=== PATIENT | female | born 1960 | race Caucasian/White ===

== ENCOUNTER 2017-03-28 10:37 | Inpatient (IN) ==
[2017-03-28] MEDS ORDERED: Albuterol 2.5 MG/3 ML NEBULIZER IH ONE (10:55)
[2017-03-28] MEDS ORDERED: CeFAZolin Syr 2,000MG/20 ML 2,000 MG/20 ML SYRINGE IVPB ONE (10:55)
[2017-03-28] MEDS ORDERED: Ringers Solution, Lactated 1,000 ML IVC SCH (11:00)
--- NOTE | 2017-03-28 11:01 | Anesthesia Evaluation PreOp ---
Date of Encounter: 03/28/17 Time of Encounter: 10:59 - Past History Planned Operation: right fem-pop Cardiac History: HTN, Hyperlipidemia, Other (PAD) Pulmonary History: Smoker, Pack/yr (25) SECURITY MANAGEMENT SPECIALIST History: TIA (no residual), Other (DM neuropathy, benign essential tremors) Other Medical History: Diabetes Type II Anesthesia History: No Prior Anesthetic Complications, Past Anesthesia (MAC for scoopes and vascualr procedures) : No Alcohol Use: none Drug use: none Medications and Allergies Albuterol Sulfate [Ventolin Hfa] 2 puff IH Q4H PRN 03/10/17 [History] Alogliptin Benzoate [Alogliptin] 25 mg PO DAILY 03/10/17 [History] Atorvastatin [Lipitor] 40 mg PO HS 03/10/17 [History] Budesonide/Formoterol 160/4.5 [Symbicort 160/4.5] 2 puff IH BIDR 03/10/17 [ History] Cetirizine HCl [Zyrtec] 10 mg PO HS PRN 03/10/17 [History] Cilostazol [Pletal] 100 mg PO BID 03/10/17 [History] Clopidogrel Bisulfate [Plavix] 75 mg PO DAILY #30 tablet 03/10/17 [Rx] Gabapentin [Neurontin] 800 mg PO TID 03/10/17 [History] Linagliptin [Tradjenta] 5 mg PO DAILY 03/10/17 [History] Losartan Potassium [Cozaar] 50 mg PO DAILY 03/10/17 [History] Oxybutynin [Ditropan] 5 mg PO BID 03/10/17 [History] Pantoprazole Sodium [Protonix] 40 mg PO DAILY 03/10/17 [History] Primidone [Mysoline] 50 mg PO BID 03/10/17 [History] Sertraline [Zoloft] 25 mg PO DAILY 03/10/17 [History] Tramadol HCl [Ultram] 50 mg PO QID PRN 03/10/17 [History] traZODone [TraZODone] 50 mg PO HS 03/10/17 [History] Aspirin [Lo-Dose Aspirin EC] 81 mg PO DAILY 03/28/17 [History] Metformin HCl [Glucophage] 1,000 mg PO BID 03/28/17 [History] 3 Allergy/AdvReac Type Severity Reaction Status Date / Time No Known Allergies Allergy Verified 03/28/17 10:49 - Meds/Allergy Pre-op Review Medications Reviewed: Yes Allergies Reviewed: Yes Beta Blockers on Current Med List: No Anesthesia Results - Labs Laboratory Tests 02/22/17 02/22/17 02/22/17 13:49 13:49 13:49 Hgb 13.1 Hct 37.4 Plt Count 339 PT 10.6 INR 1.0 APTT 29.3 BUN 5 L Creatinine 0.63 - Imaging EKG: report reviewed (SINUS TACHYCARDIA LOW QRS VOLTAGE IN PRECORDIAL LEADS) Anesthesia Exam Weight: 96kg NPO (# of Hours): 8 - HEENT Pupil (Motor): EOMI Mallampati: II Teeth: Edentulous Oral Opening: Greater than 3 - SECURITY MANAGEMENT SPECIALIST LOC: Oriented (Patient has no gross sensory loss on LE) SECURITY MANAGEMENT SPECIALIST Motor: Normal RUE, Normal LUE, Normal RLE, Normal LLE, Normal Face SECURITY MANAGEMENT SPECIALIST Sensory: Normal: RUE, LUE, RLE, LLE, Face - Cardiac Rhythm: Regular Murmur: None - Pulmonary Breath Sounds: bilateral Clear Respiratory Effort: Symmetrical Anesthesia Assess/Plan ASA Score: 3 Modified [place] Scale for Level of Consciousness: Cooperative, oriented, and tranquil Anesthetic Plan: General Monitoring Plan: Standard Monitors Recovery Plan: PACU (Discussed GA with gian, agrees to proceed. Understands may need a-line)
[2017-03-28] MEDS ORDERED: Ondansetron 4 MG/2 ML VIAL ONE (11:04)
[2017-03-28] MEDS ORDERED: *HR* Succinylcholine 200 MG/10 ML VIAL IVP ONE (11:04)
[2017-03-28] MEDS ORDERED: Lidocaine -MPF 2% 2 ML VIAL ONE (11:04)
[2017-03-28] MEDS ORDERED: Dexamethasone 4 MG/ML VIAL ONE (11:04)
[2017-03-28] MEDS ORDERED: *HR* Phenylephrine 10 MG/ML VIAL ONE (11:04)
[2017-03-28] MEDS ORDERED: *HR* Remifentanil 2 MG VIAL IVP ONE (11:05)
[2017-03-28] MEDS ORDERED: *HR* Propofol 200 MG/20 ML VIAL IVP ONE (11:05)
[2017-03-28] MEDS ORDERED: *HR* FentaNYL (PF) 100 MCG/2 ML VIAL ONE (11:05)
[2017-03-28] MEDS ORDERED: *HR* Midazolam HCl 2 MG/2 ML VIAL ONE (11:05)
[2017-03-28] MEDS ORDERED: Plasma-Lyte A (PH 7.4) 1,000 ML IVC SCH (11:30)
[2017-03-28] MEDS ORDERED: Heparin 1,000 UNITS/500 mL NS 0 ML ONE (15:31)
--- NOTE | 2017-03-28 15:44 | History & Physical Report ---
Date of Encounter: 03/28/17 Time of Encounter: 15:43 24 Hour HP Update - Instructions Instructions: If the History and Physical is less than 30 days old and was completed prior to A.M. admission and or procedure and has NOT been updated on calendar day of procedure please complete this update prior to performing procedure. - Update Patient reports changes in Medical Condition: No Changes in examination, assessment, or condition: No Changes in Medication: No Preop tests/diagnostics Reviewed: Yes Surgery Remains Indicated: Yes Consent for Planned Operative Procedure(s) Verified: Yes - Pre-Operative Checklist Preoperative Checklist Indicated: Yes Prophylactic Antibiotic Ordered: Yes Home Medications Include Beta Jeanmarie: No Beta Jeanmarie Taken Today (Day of Surgery): No Beta Jeanmarie Taken Yesterday (Day Prior to Surgery): No Is VTE Prophylaxis Indicated?: Yes
[2017-03-28] MEDS ORDERED: Heparin 1,000 UNITS/500 mL NS 500 ML ONE ×2 (16:02→16:03)
[2017-03-28] MEDS ORDERED: *HR* HYDROmorphone 2 MG/ML SYRINGE ONE (16:46)
[2017-03-28] MEDS ORDERED: *HR* Heparin 5,000 UNIT/ML VIAL ONE (16:49)
[2017-03-28] MEDS ORDERED: EPHEDrine 50 MG/ML VIAL ONE (16:58)
[2017-03-28] MEDS ORDERED: Ondansetron 4 MG/2 ML VIAL IVP ONE (17:20)
[2017-03-28] MEDS ORDERED: *HR* HYDROmorphone (PF) 1 MG/ML SYRINGE IVP PRN (17:20)
[2017-03-28] MEDS ORDERED: *HR* Promethazine 25 MG/ML VIAL IVP PRN (17:20)
--- NOTE | 2017-03-28 19:46 | Operative Note ---
Date of procedure: 03/28/17 Pre-op diagnosis: right cludication/PAD Post-op diagnosis: same Procedure: right femoral--AK popliteal bypass graft Complications: none Anesthesia: GETA Surgeon: Haile Guzman Estimated blood loss (cc): 200 Specimen: none Condition: stable Disposition: PACU Procedure in Detail: History Barbara Ramos is a 56-year-old white female with a long history of lower extremity peripheral vascular occlusive disease. She initially responded to pharmacologic agents but has had deterioration of years status. She then went on to have an angiogram in February. This demonstrated significant disease with chronic total occlusion of the superficial femoral arteries bilaterally. She had a successful endovascular treatment of the left lower extremity but the right lower extremity system could not be treated endovascularly and required direct reconstruction. She now comes for bypass grafting of the right lower extremity today. Procedure After informed consent was obtained the patient was taken to the operating room. General endotracheal anesthesia was established under arterial line pressure monitoring. The right lower extremity was sterilely prepped and draped. A timeout protocol was observed. An incision was made at the right groin in an oblique orientation to expose the common femoral artery. This vessel was relatively small in diameter. There was a posterior plaque but the pulse anteriorly was strong and the wall was soft. Dissection revealed that this was a very deep artery and because of the depth of the vessel it was thought inappropriate to proceed with vein grafting and so therefore did decision was made to create this bypass with synthetic. A second incision was then made in the [id number] popliteal area. Dissection was carried down to reveal the above-knee popliteal artery. This vessel was relatively normal in size. It was firm but not hard. An incision was made on the anterior surface of the popliteal artery. Heparin had been administered prior to that and a tunnel was created in a subsartorial space. A 6 mm PTFE Distaflo graft was selected. This was anastomosed in end to side fashion distally first. After this was completed the graft was clamped and then attention was directed proximally. An endograft to side of artery anastomosis was made proximally using 6-0 Prolene suture. Leaving a small space open on the suture line the graft was flushed. The final few sutures were placed. The graft wasn't unclamped and pulsatile flow was restored into the popliteal and tibial system. Excellent Doppler signals were identified at the ankle. The wounds were then irrigated and hemostasis achieved. The incisions were closed using absorbable suture. There were no intraoperative complications. The patient tolerated the procedure well. The patient was extubated in the operating room and taken to the recovery room in stable condition.
[2017-03-28] MEDS ORDERED: Esmolol 100 MG/10 ML VIAL IVP ONE (19:47)
--- NOTE | 2017-03-28 20:23 | Anesthesia Evaluation Post Op ---
Date of Encounter: 03/28/17 Time of Encounter: 20:22 - Vital Signs Vital Signs: Vital Signs/O2 Sat, Most Current Temp Pulse Resp BP Pulse Ox 98.9 F 102 15 152/77 95 03/28/17 19:55 03/28/17 20:15 03/28/17 20:15 03/28/17 20:15 03/28/17 20:15 - Lungs Lungs: Clear Ascult./Percussion - Airway Airway: Non-obstructed - Cardiovascular Regular Rate - Mental Status Mental Status: Alert & Oriented, Answers Appropriately - Pain Pain Scale: 0 Pain Scale used: Numeric (1 - 10) - Nausea Vomiting Nausea Vomiting: Not Present - Hydration Hydration: Ice chips, Joseph catheter - Discharge PostOp Status: Transfer Patient to floor
[2017-03-28] MEDS ORDERED: Loratadine 10 MG TABLET PO PRN (20:41)
[2017-03-28] MEDS ORDERED: Naloxone 0.4 MG/ML INJ IVP PRN (20:41)
[2017-03-28] MEDS ORDERED: Ondansetron 4 MG/2 ML VIAL IVP PRN (20:41)
[2017-03-28] MEDS ORDERED: traMADol 50 MG TABLET PO PRN (20:41)
[2017-03-28] MEDS ORDERED: traZODone 50 MG TABLET PO SCH (21:00)
[2017-03-28] MEDS: Gabapentin 400 MG CAPSULE PO SCH (21:37)
[2017-03-28] MEDS: Primidone 50 MG TABLET PO SCH (21:37)
[2017-03-28] MEDS: *HR* Metformin 500 MG TABLET PO SCH (21:40)
[2017-03-28] MEDS: Budesonide/Formoterol 160/4.5 MDI IH SCH (21:59)
[2017-03-29] MEDS: CeFAZolin Premix DUPLEX 2,000 MG/50 ML BAG IVPB SCH ×2 (00:02→08:35)
[2017-03-29] MEDS ORDERED: *HR* Morphine 2 MG/ML SYRINGE IVP PRN ×2 (00:31)
[2017-03-29 05:20] LABS: Basophils % 0.3 %; Eosinophils % 0.1 %; Hematocrit 30.4 % (35.3-44.9); Hemoglobin 10.2 g/dL (11.5-15.4); Immature Granulocytes % 0.4 % (0-4); Lymphocytes # 2.1 K/mcL (0.6-4.6); Lymphocytes % 13.8 %; Mean Corpuscular HGB Conc 33.6 g/dL (31.6-35.5); Mean Corpuscular Hemoglobin 29.4 pg (28.0-33.3); Mean Corpuscular Volume 87.6 fL (83.0-100.0); Mean Platelet Volume 10.2 fL (9.4-12.4); Monocytes % 6.4 %; Neutrophils # 11.8 K/mcL (1.6-8.9); Platelet Count 256 K/mcL (140-400); Red Blood Count 3.47 M/mcL (3.82-4.97)
[2017-03-29 05:44] LABS: BUN/Creatinine Ratio 13 (6-26); Blood Urea Nitrogen 9 mg/dL (7-20); Calcium 8.1 mg/dL (8.6-10.8); Carbon Dioxide 24 mEq/L (19-29); Chloride 104 mEq/L (98-109); Glucose 224 mg/dL (70-99); Osmolality,Calculated 286 (280-300); Potassium 4.3 mEq/L (3.5-4.5); Sodium 135 mEq/L (136-145); eGFR For African Americans > 60 (> 60); eGFR For Non-African Americans > 60 (> 60)
[2017-03-29] MEDS: Budesonide/Formoterol 160/4.5 MDI IH SCH (07:53)
[2017-03-29] MEDS: Gabapentin 400 MG CAPSULE PO SCH ×2 (08:34→15:38)
[2017-03-29] MEDS: *HR* HYDROcodone/Acet 5/325 mg TABLET PO PRN ×2 (08:34→15:38)
[2017-03-29] MEDS: *HR* Metformin 500 MG TABLET PO SCH (08:35)
[2017-03-29] MEDS: Primidone 50 MG TABLET PO SCH (08:35)
[2017-03-29] MEDS ORDERED: (Linagliptin [Tradjenta] 5 MG) PO SCH (09:00)
[2017-03-29] MEDS ORDERED: ALOGLIPTIN BENZOATE 25 MG PO SCH (09:00)
[2017-03-29] MEDS ORDERED: Aspirin Enteric Coated 81 MG Tablet PO SCH (09:00)
[2017-03-29 10:57] VITALS: BP 125/65
--- NOTE | 2017-03-29 14:42 | Discharge Summary ---
Date of Encounter: 03/29/17 Time of Encounter: 14:37 - Discharge Diagnosis (1) PAD (peripheral artery disease) Priority: Primary Status: Chronic Comments: Patient has lifestyle limiting claudication. This led to the left lower extremity endovascular intervention. She now is admitted for right femoral- popliteal bypass graft. The patient has a chronic total occlusion of the right superficial femoral artery which could not be treated through an endovascular means. Patient did well with surgery. Patient developed a palpable posterior tibial pulse at the ankle following the operation. The patient was able to ambulate in the hallways. The patient was felt fit for discharge on the afternoon of postoperative day #1. (2) Diabetes Priority: Secondary Status: Chronic Comments: Patient is under medical treatment for chronic diabetes Qualifiers: Diabetes mellitus type: type 2 Diabetes mellitus complication status: with circulatory complication Diabetes mellitus complication detail: with peripheral angiopathy without gangrene Diabetes mellitus shelter insulin use : without shelter use Qualified Code(s): E11.51 - Type 2 diabetes mellitus with diabetic peripheral angiopathy without gangrene (3) Tobacco abuse Priority: Secondary Status: Chronic Comments: Patient has history of chronic tobacco abuse (4) HTN (hypertension) Priority: Secondary Status: Chronic Comments: Patient is under medical treatment for hypertension Qualifiers: Hypertension type: essential hypertension Qualified Code(s): I10 - Essential (primary) hypertension - Discharge Medications Home Medications: Albuterol Sulfate [Ventolin Hfa] 2 puff IH Q4H PRN 03/10/17 [History] Alogliptin Benzoate [Alogliptin] 25 mg PO DAILY 03/10/17 [History] Atorvastatin [Lipitor] 40 mg PO HS 03/10/17 [History] Budesonide/Formoterol 160/4.5 [Symbicort 160/4.5] 2 puff IH BIDR 03/10/17 [ History] Cetirizine HCl [Zyrtec] 10 mg PO HS PRN 03/10/17 [History] Cilostazol [Pletal] 100 mg PO BID 03/10/17 [History] Clopidogrel Bisulfate [Plavix] 75 mg PO DAILY #30 tablet 03/10/17 [Rx] Gabapentin [Neurontin] 800 mg PO TID 03/10/17 [History] Linagliptin [Tradjenta] 5 mg PO DAILY 03/10/17 [History] Losartan Potassium [Cozaar] 50 mg PO DAILY 03/10/17 [History] Oxybutynin [Ditropan] 5 mg PO BID 03/10/17 [History] Pantoprazole Sodium [Protonix] 40 mg PO DAILY 03/10/17 [History] Primidone [Mysoline] 50 mg PO BID 03/10/17 [History] Sertraline [Zoloft] 25 mg PO DAILY 03/10/17 [History] Tramadol HCl [Ultram] 50 mg PO QID PRN 03/10/17 [History] traZODone [TraZODone] 50 mg PO HS 03/10/17 [History] Aspirin [Lo-Dose Aspirin EC] 81 mg PO DAILY 03/28/17 [History] Metformin HCl [Glucophage] 1,000 mg PO BID 03/28/17 [History] Allergies/Adverse Reactions: 3 Allergy/AdvReac Type Severity Reaction Status Date / Time No Known Allergies Allergy Verified 03/28/17 10:49 Date of admission: 03/28/17 20:55 Primary care physician: Tyra Wagner CNP Consults: None Procedure(s) Performed: Right [id number] popliteal bypass graft with 6 mm PTFE Distaflo Discharging clinician: Haile Guzman Anticipated date of discharge: 03/29/17 - Patient Status Disposition: Home, Self-Care Condition: Good Functional capacity at discharge: uses cane/walker Overall status at discharge: patient is progressing back to baseline - Discharge Instructions Follow Up With: Tyra Wagner CNP [Primary Care Provider] - Haile Guzman MD [Partnered Physician] - 04/19/17 11:45 am Additional Instructions: Remove right lower extremity dressings on Monday afternoon. May reapply as needed. Encourage ambulation. Keep right lower extremity elevated when not ambulating. Patient may use stairs. Patient may walk inside or outside as tolerated. No showers until 5 days following surgery. Continue usual home medications. Use walker to assist with ambulation as needed. - Diet and Activity Activity: increase activity as tolerated Diet: advance to your usual diet - Hospital Course Hospital course: Ms. Ramos is a 56 year old female With lifestyle limiting right lower extremity claudication. She underwent a right femoral-popliteal bypass graft under general endotracheal anesthesia. A 6 mm PTFE distal flow graft was selected. The patient tolerated the procedure well. She was extubated on the table immediately postoperatively. She developed a palpable posterior tibial pulse. The right foot was warm and pink. There is no lower extremity edema. Instructions regards to diet and exercise and medications and wound care were reviewed with the patient prior to discharge. - Time Spent with Patient Total time spent providing and/or coordinating discharge services: Exam Vital Signs, Last 4 Hours Temp Pulse Resp BP Pulse Ox 03/29/17 11:39 96 03/29/17 10:55 99.5 F 95 14 125/65 98 General: Present: Conversant, No Apparent Distress, Well developed, Well nourished HEENT: Present: Atraumatic Neck: Absent: JVD Cardiac: Present: Reg Rate and Rhythm Lungs: Present: Normal Breath Sounds Neuro: Present: Alert and responsive, No focal deficits noted, Cranial nerves grossly intact Abdomen: Present: Soft Vascular: Present: Pulse, normal, Edema (There is no edema.), Color/Temperature (Left foot is warm and pink), Surgical incisions (Surgical incisions are dry.) - VTE Documentation of Mechanical Device: Intermittent pneumatic compression device
== END 2017-03-29 16:10 | disposition home or self-care (01) | DRG 181 ==
LOC: SAMDAY 10:37 → 2NNU 20:55
PROVIDERS: ADMIT Surgery Vascular Surgery; ATTEND Surgery Vascular Surgery

== ENCOUNTER 2017-08-29 11:07 | Inpatient (IN) ==
[2017-08-29] MEDS ORDERED: Acetaminophen IV 1,000 MG/100 ML INFUS..BTL IVPB ONE (11:26)
[2017-08-29] MEDS ORDERED: Famotidine 20 MG/2 ML VIAL IVP ONE (11:26)
[2017-08-29] MEDS ORDERED: Heparin 1,000 UNITS/500 mL 500 ML ONE ×3 (11:40→16:38)
[2017-08-29] MEDS ORDERED: Albuterol 2.5 MG/3 ML NEBULIZER IH ONE (12:02)
[2017-08-29] MEDS ORDERED: Lidocaine -MPF 1% 2 ML VIAL ID ONE (12:02)
[2017-08-29] MEDS ORDERED: CeFAZolin Syr 2,000MG/20 ML 2,000 MG/20 ML SYRINGE IVPB ONE (12:02)
[2017-08-29] MEDS ORDERED: *HR* Midazolam HCl 2 MG/2 ML VIAL ONE (12:13)
[2017-08-29] MEDS ORDERED: *HR* Propofol 200 MG/20 ML VIAL IVP ONE ×2 (12:13→13:49)
[2017-08-29] MEDS ORDERED: Dexamethasone 4 MG/ML VIAL ONE (12:13)
[2017-08-29] MEDS ORDERED: *HR* Succinylcholine 200 MG/10 ML VIAL IVP ONE (12:13)
[2017-08-29] MEDS ORDERED: Ondansetron 4 MG/2 ML VIAL ONE (12:13)
[2017-08-29] MEDS ORDERED: Lidocaine -MPF 2% 2 ML VIAL ONE (12:13)
[2017-08-29] MEDS ORDERED: Lidocaine -MPF 4% 5 ML AMPUL ONE (12:13)
[2017-08-29] MEDS ORDERED: *HR* FentaNYL (PF) 100 MCG/2 ML VIAL ONE (12:13)
[2017-08-29] MEDS ORDERED: Plasma-Lyte A (PH 7.4) 1,000 ML IVC SCH (12:15)
[2017-08-29] MEDS ORDERED: *HR* Remifentanil 2 MG VIAL IVP ONE (12:36)
--- NOTE | 2017-08-29 12:36 | Anesthesia Evaluation PreOp ---
Date of Encounter: 08/29/17 Time of Encounter: 12:30 - Past History Planned Operation: Rt Fem-Pop Graft Thrombectomy Cardiac History: HTN, Hyperlipidemia, Other (PVD) Pulmonary History: Smoker SENIOR SYSTEMS ARCHITECT History: Denies Any Significant HX Other Medical History: Diabetes Type II Anesthesia History: No Prior Anesthetic Complications Alcohol Use: none Drug use: none Medications and Allergies Albuterol Sulfate [Ventolin Hfa] 2 puff IH Q4H PRN 03/10/17 [History] Alogliptin Benzoate [Alogliptin] 25 mg PO DAILY 03/10/17 [History] Atorvastatin [Lipitor] 40 mg PO HS 03/10/17 [History] Budesonide/Formoterol 160/4.5 [Symbicort 160/4.5] 2 puff IH BIDR 03/10/17 [ History] Cetirizine HCl [Zyrtec] 10 mg PO HS PRN 03/10/17 [History] Cilostazol [Pletal] 100 mg PO BID 03/10/17 [History] Gabapentin [Neurontin] 800 mg PO TID 03/10/17 [History] Linagliptin [Tradjenta] 5 mg PO DAILY 03/10/17 [History] Losartan Potassium [Cozaar] 50 mg PO DAILY 03/10/17 [History] Oxybutynin [Ditropan] 5 mg PO BID 03/10/17 [History] Pantoprazole Sodium [Protonix] 40 mg PO DAILY 03/10/17 [History] Primidone [Mysoline] 50 mg PO BID 03/10/17 [History] Sertraline [Zoloft] 25 mg PO DAILY 03/10/17 [History] Tramadol HCl [Ultram] 50 mg PO QID PRN 03/10/17 [History] traZODone [TraZODone] 50 mg PO HS 03/10/17 [History] Aspirin [Lo-Dose Aspirin EC] 81 mg PO DAILY 03/28/17 [History] Metformin HCl [Glucophage] 1,000 mg PO BID 03/28/17 [History] [place]-3/Dha/Epa/Fish Oil [Fish Oil 1,000 mg Softgel] 1 cap PO BID 08/29/17 [ History] 3 Allergy/AdvReac Type Severity Reaction Status Date / Time clopidogrel [From Plavix] Allergy Itching Verified 08/29/17 12:01 - Meds/Allergy Pre-op Review Medications Reviewed: Yes Allergies Reviewed: Yes Beta Blockers on Current Med List: Yes (Metoprolol today 0600) Anesthesia Results - Labs Laboratory Tests 08/24/17 08/24/17 08/24/17 13:37 13:37 13:37 Hgb 13.7 Hct 40.9 Plt Count 284 PT 10.2 INR 1.0 APTT 30.3 Sodium 138 Potassium 4.2 BUN 4 L Creatinine 0.48 L - Imaging EKG: report reviewed (ST) Anesthesia Exam O2 Sat Height 1.68 m Height 1.68 m Height 1.68 m Weight 97.976 kg Weight 97.976 kg Weight 97.976 kg O2 Sat by Pulse Oximetry 98 O2 Sat by Pulse Oximetry 98 Vital Signs Temp Pulse Resp BP Pulse Ox 97.9 F 87 18 129/69 98 08/29/17 11:34 08/29/17 11:34 08/29/17 11:34 08/29/17 11:34 08/29/17 11:34 Height: 5'6 Weight: 216 lbs NPO (# of Hours): MN Pain Scale: 0 - HEENT Pupil (Motor): Pupils equal, EOMI Mallampati: III Teeth: Normal Oral Opening: Greater than 3 - SENIOR SYSTEMS ARCHITECT LOC: Oriented SENIOR SYSTEMS ARCHITECT Motor: Normal RUE, Normal LUE, Normal RLE, Normal LLE, Normal Face SENIOR SYSTEMS ARCHITECT Sensory: Normal: RUE, LUE, RLE, LLE, Face - Cardiac Rhythm: Regular Murmur: None JVD: No Carotid Bruit: No - Pulmonary Breath Sounds: bilateral Clear Respiratory Effort: Symmetrical Anesthesia Assess/Plan ASA Score: 3 (HTN DM) Modified [place] Scale for Level of Consciousness: Cooperative, oriented, and tranquil Anesthetic Plan: General Monitoring Plan: Standard Monitors, A-Line Recovery Plan: PACU (Discussed GA, agrees to proceed)
--- NOTE | 2017-08-29 13:17 | History & Physical Report ---
Date of Encounter: 08/29/17 Time of Encounter: 13:16 24 Hour HP Update - Instructions Instructions: If the History and Physical is less than 30 days old and was completed prior to A.M. admission and or procedure and has NOT been updated on calendar day of procedure please complete this update prior to performing procedure. - Update Patient reports changes in Medical Condition: No Changes in examination, assessment, or condition: No Changes in Medication: No Preop tests/diagnostics Reviewed: Yes Surgery Remains Indicated: Yes Consent for Planned Operative Procedure(s) Verified: Yes - Pre-Operative Checklist Preoperative Checklist Indicated: Yes Prophylactic Antibiotic Ordered: Yes Home Medications Include Beta Jeanmarie: No Beta Jeanmarie Taken Today (Day of Surgery): No Beta Jeanmarie Taken Yesterday (Day Prior to Surgery): No Is VTE Prophylaxis Indicated?: Yes
[2017-08-29] MEDS ORDERED: ceFAZolin 1,000 MG, Sodium Chloride IRRigation 1,000 ML IR ONE (14:00)
[2017-08-29] MEDS ORDERED: *HR* PHENYLEPHRINE 1,000 MCG/10 ML SYRINGE IVP ONE (14:03)
[2017-08-29] MEDS ORDERED: *HR* Heparin 5,000 UNIT/ML VIAL ONE ×2 (14:37→15:49)
[2017-08-29] MEDS ORDERED: *HR* Labetalol 20 MG/4 ML SYRINGE IVP PRN (15:56)
[2017-08-29] MEDS ORDERED: MORPHINE SUL Oral CONC 10 MG/0.5 ML ORAL.SYG SL PRN (15:56)
[2017-08-29] MEDS ORDERED: *HR* Promethazine 25 MG/ML VIAL IVP PRN (15:56)
[2017-08-29] MEDS ORDERED: *HR* OxyCODONE Immed Rel 5 MG TABLET PO PRN (15:56)
[2017-08-29] MEDS ORDERED: *HR* Morphine 10 MG/ML VIAL ONE ×2 (17:15→17:34)
--- NOTE | 2017-08-29 17:54 | Operative Note ---
Date of procedure: 08/29/17 Pre-op diagnosis: pad/claudication Post-op diagnosis: same Procedure: thrombectomy of right fem-pop bypass graft Complications: none Anesthesia: GETA Surgeon: Haile Guzman Was there an account assistant present: No Estimated blood loss (cc): 200 Specimen: 0 Condition: stable Disposition: PACU Procedure in Detail: History Eloina Ramos is a 57-year-old white female with known bilateral lower extremity vascular disease. She had undergone angiography and endovascular intervention in February 2017. She required bypass grafting for the right lower extremity. She underwent a right femoral to [id number] popliteal artery bypass graft with PTFE in March 2017. On routine follow-up testing she was found to have an occluded graft. She now comes to the operating room for graft thrombectomy. Procedure After informed consent was obtained the patient was taken the operating room. General endotracheal anesthesia was established. The right lower extremity was sterilely prepped and draped. A timeout protocol was observed. The right above- the-knee popliteal incision was opened. Dissection was carried down through the scar tissue to identify the graft. The graft was dissected down to the level of the anastomosis which was also then controlled with the [place] vessel controlled proximally and distally. With this done 5000 units heparin was administered intravenously. A transverse incision was made on the graft. There was no obvious clot or fluid in the graft at this point. A 4 [place] Cait catheter was then used and was passed both retrograde and antegrade. Upon passing the catheter antegrade in encountered a obstruction. Then I inserted a small sized [place] mole ring dissector in order to loosen the thrombus. Some chronic material was removed but pulsatile flow was not achieved. Therefore was obvious that we would need to explore the more proximal part of the graft in order to achieve appropriate graft thrombectomy. Using a longitudinal incision on the proximal thigh dissection was then made to expose the graft at its proximal anastomosis. The graft was densely adherent and covered with thick white scar. Dissection was made of this area and control obtained of the graft. A pulse could be palpated at the anastomosis but nothing distally. A transverse graftotomy was then made in the proximal portion of the graft. A 4 and 5 [place] Cait catheter were used. A white rubbery material was removed and when this was accomplished excellent pulsatile flow wasn't achieved through the graft. There was no fresh clot or subacute clot present. With this done in the excellent pulsation present flushing was performed of the graft with heparinized saline. The graftotomy sites were then closed in pulsatile flow was then achieved back into the popliteal system. The patient had a strongly palpable popliteal pulse distal to the distal anastomosis. Doppler signals were identified over the dorsalis pedis artery at the right foot. The wounds were then irrigated and hemostasis achieved. The wounds were closed in layers using absorbable suture. No blood transfusions were administered. The patient was extubated in the operating room and taken to the recovery room in stable condition.
--- NOTE | 2017-08-29 18:34 | Anesthesia Evaluation Post Op ---
Date of Encounter: 08/29/17 Time of Encounter: 18:35 - Vital Signs Vital Signs: Vital Signs/O2 Sat/Glucose, Most Current Temp Pulse Resp BP Pulse Ox 08/29/17 18:29 98.4 F 95 16 131/55 94 08/29/17 18:19 97.9 F 96 18 119/52 94 08/29/17 18:09 97.9 F 98 18 131/55 94 08/29/17 17:59 97.9 F 105 18 129/69 98 - Lungs Lungs: Clear Ascult./Percussion - Airway Airway: Non-obstructed - Cardiovascular Regular Rate - Mental Status Mental Status: Alert & Oriented, Answers Appropriately - Pain Pain Scale: 0 - Nausea Vomiting Nausea Vomiting: Not Present - Hydration Hydration: Ice chips - Discharge PostOp Status: Transfer Patient to floor
[2017-08-29] MEDS ORDERED: traMADol 50 MG TABLET PO PRN (19:37)
[2017-08-29] MEDS ORDERED: Ondansetron 4 MG/2 ML VIAL IVP PRN (19:37)
[2017-08-29] MEDS ORDERED: Naloxone 0.4 MG/ML INJ IVP PRN (19:37)
[2017-08-29] MEDS ORDERED: Loratadine 10 MG TABLET PO PRN (19:37)
[2017-08-29] MEDS: Budesonide/Formoterol 160/4.5 MDI IH SCH (21:47)
[2017-08-29] MEDS: (Omega-3/Dha/Epa/Fish Oil [Fish Oil 1,000 Mg Softgel]) PO SCH (21:48)
[2017-08-29] MEDS: Gabapentin 400 MG CAPSULE PO SCH (21:50)
[2017-08-29] MEDS: *HR* Metformin 500 MG TABLET PO SCH (21:50)
[2017-08-29] MEDS: Primidone 50 MG TABLET PO SCH (21:50)
[2017-08-29] MEDS: ceFAZolin 2,000 MG in 0.9 % Sodium Chloride 100 ML IVPB SCH (23:54)
[2017-08-30] MEDS ORDERED: CeFAZolin Pre 2,000 MG/100 ML 2,000 MG/100 ML BAG IVPB SCH
[2017-08-30 04:29] LABS: Basophils % 0.1 %; Hematocrit 21.6 % (35.3-44.9); Hemoglobin 7.2 g/dL (11.5-15.4); Immature Granulocytes % 0.5 % (0-4); Lymphocytes # 1.3 K/mcL (0.6-4.6); Lymphocytes % 9.5 %; Mean Corpuscular HGB Conc 33.3 g/dL (31.6-35.5); Mean Corpuscular Volume 87.1 fL (83.0-100.0); Monocytes # 1.1 K/mcL (0.0-1.3); Platelet Count 164 K/mcL (140-400); Red Blood Count 2.48 M/mcL (3.82-4.97); Red Cell Distribution Width 14.7 % (11.5-14.5); Segmented Neutrophils % 81.9 %
[2017-08-30 04:41] LABS: BUN/Creatinine Ratio 23 (6-26); Blood Urea Nitrogen 11 mg/dL (6-20); Calcium 6.2 mg/dL (8.6-10.3); Carbon Dioxide 18 mEq/L (23-29); Chloride 114 mEq/L (98-107); Glucose 178 mg/dL (70-105); Osmolality,Calculated 306 (280-300); Potassium 3.1 mEq/L (3.5-5.1); Sodium 146 mEq/L (136-145); eGFR For African Americans > 60 (> 60); eGFR For Non-African Americans > 60 (> 60)
[2017-08-30] MEDS: Budesonide/Formoterol 160/4.5 MDI IH SCH (08:05)
[2017-08-30] MEDS: *HR* Metformin 500 MG TABLET PO SCH (08:46)
[2017-08-30] MEDS: Gabapentin 400 MG CAPSULE PO SCH ×2 (08:46→15:50)
[2017-08-30] MEDS: (Omega-3/Dha/Epa/Fish Oil [Fish Oil 1,000 Mg Softgel]) PO SCH (08:47)
[2017-08-30] MEDS: Primidone 50 MG TABLET PO SCH (08:47)
[2017-08-30] MEDS: ceFAZolin 2,000 MG in 0.9 % Sodium Chloride 100 ML IVPB SCH ×2 (08:48→15:47)
[2017-08-30] MEDS: *HR* HYDROcodone/Acet 5/325 mg TABLET PO PRN ×2 (08:55→15:50)
[2017-08-30] MEDS ORDERED: (Alogliptin Benzoate [Alogliptin] 25 MG) PO SCH (09:00)
[2017-08-30] MEDS ORDERED: Aspirin Enteric Coated 81 MG Tablet PO SCH (09:00)
[2017-08-30 11:12] VITALS: BP 110/56
--- NOTE | 2017-08-30 15:58 | Discharge Summary ---
Orders not resulted at time of discharge: Pending orders 08/28/17 Red Blood Cells [BBK] Routine Date of Encounter: 08/30/17 Time of Encounter: 13:00 - Discharge Diagnosis (1) PAD (peripheral artery disease) Priority: Primary Status: Chronic Comments: Patient was found to have an occluded right femoral-popliteal bypass graft on routine outpatient screening. He I Pass was originally created in March 2017. The patient had a return trip to the operating room yesterday for graft thrombectomy. Patient demonstrated excellent flow through the graft after the thrombectomy with Doppler signals at the right ankle. (2) Diabetes Priority: Secondary Status: Chronic Comments: Patient is under medical treatment Qualifiers: Diabetes mellitus type: type 2 Diabetes mellitus moth exterminator insulin use: without fpc use Diabetes mellitus complication status: with circulatory complication Diabetes mellitus complication detail: with peripheral angiopathy without gangrene Qualified Code(s): E11.51 - Type 2 diabetes mellitus with diabetic peripheral angiopathy without gangrene (3) Tobacco abuse Priority: Secondary Status: Chronic Comments: Chronic tobacco abuse (4) HTN (hypertension) Priority: Secondary Status: Chronic Comments: Patient under medical treatment for hypertension Qualifiers: Hypertension type: essential hypertension Qualified Code(s): I10 - Essential (primary) hypertension - Hospital Course Hospital course: Ms. Ramos is a 57 year old female Who is status post a right femoral popliteal bypass graft with PTFE in March 2017. On routine follow-up scanning she was found to have an occluded graft. She was recommended to undergo thrombectomy of the graft to restore pulsatile flow into the right leg and to avoid complication from her severe PAD. At surgery yesterday the patient required opening both the popliteal and the groin incision. The obstructing chronic thrombus was removed. Excellent pulsatile flow was restored. The patient had excellent Doppler signals in her right foot which was warm and pink. The patient was felt fit for discharge on postoperative day #1. Because of her sensitivity to clopidogrel the patient will be given Effient as an antiplatelet agent to help preserve graft patency. Instructions were given to the patient regards to wound care. Patient is to follow-up with me in 2 weeks. - Time Spent with Patient Total time spent providing and/or coordinating discharge services: - Discharge Medications Prescriptions: HYDROcodone/Acet 5/325 mg [[place] 5-325 mg] 1 tab PO Q6HR PRN 7 Days #10 tablet PRN Reason: Moderate Pain Prasugrel [Effient] 10 mg PO DAILY #30 tablet Home Medications: Albuterol Sulfate [Ventolin Hfa] 2 puff IH Q4H PRN 03/10/17 [History] Alogliptin Benzoate [Alogliptin] 25 mg PO DAILY 03/10/17 [History] Atorvastatin [Lipitor] 40 mg PO HS 03/10/17 [History] Budesonide/Formoterol 160/4.5 [Symbicort 160/4.5] 2 puff IH BIDR 03/10/17 [ History] Cetirizine HCl [Zyrtec] 10 mg PO HS PRN 03/10/17 [History] Cilostazol [Pletal] 100 mg PO BID 03/10/17 [History] Gabapentin [Neurontin] 800 mg PO TID 03/10/17 [History] Linagliptin [Tradjenta] 5 mg PO DAILY 03/10/17 [History] Losartan Potassium [Cozaar] 50 mg PO DAILY 03/10/17 [History] Oxybutynin [Ditropan] 5 mg PO BID 03/10/17 [History] Pantoprazole Sodium [Protonix] 40 mg PO DAILY 03/10/17 [History] Primidone [Mysoline] 50 mg PO BID 03/10/17 [History] Sertraline [Zoloft] 25 mg PO DAILY 03/10/17 [History] Tramadol HCl [Ultram] 50 mg PO TID PRN 03/10/17 [History] traZODone [TraZODone] 50 mg PO HS 03/10/17 [History] Aspirin [Lo-Dose Aspirin EC] 81 mg PO DAILY 03/28/17 [History] Metformin HCl [Glucophage] 1,000 mg PO BID 03/28/17 [History] Hillman-3/Dha/Epa/Fish Oil [Fish Oil 1,000 mg Softgel] 1 cap PO BID 08/29/17 [ History] HYDROcodone/Acet 5/325 mg [[place] 5-325 mg] 1 tab PO Q6HR PRN 7 Days #10 tablet 08/30/17 [Rx] Prasugrel [Effient] 10 mg PO DAILY #30 tablet 08/30/17 [Rx] Allergies/Adverse Reactions: 3 Allergy/AdvReac Type Severity Reaction Status Date / Time clopidogrel [From Plavix] Allergy Itching Verified 08/29/17 12:01 Date of admission: 08/29/17 19:30 Primary care physician: Constantin Coates Consults: None Procedure(s) Performed: Right femoral-popliteal bypass graft thrombectomy Discharging clinician: Haile Guzman Anticipated date of discharge: 08/30/17 Exam General: Present: Conversant, No Apparent Distress, Well developed, Well nourished Neck: Absent: JVD Cardiac: Present: Reg Rate and Rhythm Vascular: Present: Normal capillary refill, Color/Temperature (Right foot is warm and pink), Surgical incisions (Dressings were removed and incisions are clean and dry.), Other (Patient has Doppler signals 3 at the right foot and ankle) Skin: Present: No rashes noted on visualized skin - Patient Status Disposition: Home, Self-Care Condition: Good Functional capacity at discharge: independent ambulation Overall status at discharge: patient is progressing back to baseline - Discharge Instructions Follow Up With: Kiara Verma CNP [Primary Care Provider] - 09/08/17 1:15 pm Haile Guzman MD [Partnered Physician] - 09/20/17 9:45 am Additional Instructions: Redress right lower extremity surgical incisions prior to discharge. Please provide patient with extra dressings. Patient is to resume usual home medications. A prescription for Prasugel is given to the patient for antiplatelet activity to preserve graft patency. No lifting greater than 10 pounds. No driving. No manual labor. Keep the incisions dry for total of 5 days following surgery. Patient may delay inside and outside. Stairs as tolerated. - Diet and Activity Activity: increase activity as tolerated Diet: diabetic diet - VTE Documentation of Mechanical Device: Intermittent pneumatic compression device
== END 2017-08-30 16:35 | disposition home or self-care (01) | DRG 181 ==
LOC: SAMDAY 11:07 → 2NNU 19:30
PROVIDERS: ADMIT Surgery Vascular Surgery; ATTEND Surgery Vascular Surgery